=== PATIENT | male | born 1955 | race Caucasian/White ===

== ENCOUNTER 2022-09-23 05:36 | Observation (INO) ==
--- NOTE | 2022-09-01 10:48 | PAT Medication Instructions ---
Medication Instructions Date of Service September 01, 2022 Home Medications Medication Instructions Recorded Fernanda Johnson #1 ea 08/15/22 amlodipine 5 mg tablet 5 mg PO BID ibuprofen 200 mg tablet 200 mg PO Q6H PRN Pain lisinopril 40 mg tablet 40 mg PO QAM sitagliptin phosphate 50 mg tablet (Januvia) 50 mg PO QAM ASK your prescriber and surgeon ibuprofen 200 mg tablet 200 mg PO Q6H PRN Pain DO NOT take the morning of surgery lisinopril 40 mg tablet 40 mg PO QAM sitagliptin phosphate 50 mg tablet (Januvia) 50 mg PO QAM Take morning of surgery With a small sip of water, OTHERWISE NOTHING TO EAT OR DRINK AFTER MIDNIGHT: amlodipine 5 mg tablet 5 mg PO BID Take evening before surgery amlodipine 5 mg tablet 5 mg PO BID Other Notes If you have any questions please call us at [phone] or [phone] or [phone] or [phone]
--- NOTE | 2022-09-10 10:25 | Anesthesiology Consultation ---
Date of Service September 10, 2022 Assessment & Plan (1) Encounter for pre-operative examination: Chart Review Chart Review: Acceptable Risk for Surgery and Patient seen in Pre Admission Testing Pt currently scheduled as 23 hours observation. If surgeon decides to change patient to Same Day Joint, patient would be acceptable risk for TKA, pending patient is motivated, has good support and surgeon's office completes [facility] Program preop requirements. - Check BSG AM DOS Per PAT appt on 09/10/22, patient denies any recent travel or large group activities. Pt is vaccinated for Covid. Will leave to surgeon's discretion if preop Covid testing needed. Educated on importance of using Covid precautions one week prior to surgery Teaching & Discussion Pre-Anesthesia Teaching/Discussion Notes: Instructed NPO after midnight before surgery,except medications with 15 cc of water. Medication instructions provided according to the PAT guidelines. History Surgery Operation Date: 09/23/22 08:50 Proposed Procedures p Right Total Knee Arthroplasty - Ismael Augustine MD Height/Weight Height: 6 ft 2 in Weight: 143.3 kg Allergies Allergy/AdvReac Type Severity Reaction Status Date / Time codeine Allergy Intermediate Nausea Verified 08/29/22 10:49 Medications Home Medications Medication Instructions Recorded Confirmed Last Taken Wheeled Walker #1 ea 08/15/22 08/29/22 Unknown amlodipine 5 mg tablet 5 mg PO BID 08/29/22 08/29/22 Unknown ibuprofen 200 mg tablet 200 mg PO Q6H PRN Pain 08/29/22 08/29/22 Unknown lisinopril 40 mg tablet 40 mg PO QAM 08/29/22 08/29/22 Unknown sitagliptin phosphate 50 mg tablet 50 mg PO QAM 08/29/22 08/29/22 Unknown (Urvashi) Past Medical History Medical History (Updated 09/10/22 @ 15:04 by Courtney Christian PA-C) Diabetes mellitus, type 2 Hgb A1C 7.5 in 07/2022 History of throat cancer Dx'ed 2000- s/p tonsillectomy and removal of LN on right side - s/p chemo/XRT No saliva glands to right side of mouth Hypertension Osteoarthritis Post-nasal drip worse at night - chronic/stable - improved with Afrin Exercise / Class Metabolic Activity II 4-5 Yardwork/Stairs/Walk up hill (one flight of stairs - no chest pain or SOB ) Past Family History Family History Aunt Diabetes Past Surgical History Surgical History Closed left ankle fracture with surgical repair History of colonoscopy History of tooth extraction bridge lower jaw History of total knee replacement left Hx of tonsillectomy removed right one due to cancer > radiation 36 treatments > 20 yrs ago Hx of umbilical hernia repair x3 Past Anesthesia History No Hx of Anesthesia Complications and No Family Hx of Anesthesia Complications History of PONV No Hx of PONV and No Hx of Motion Sickness Social History Smoking Status: Never smoker Do You Dip or Chew Tobacco: No Hx Alcohol Use: Yes Alcohol type: beer alcohol intake frequency: a few times a week Hx Substance Use: No substance use type: does not use Review of Systems Cough (chronic)- secondary to post nasal drip- stable Pt had own blood transfusion with last knee surgery Patient denies chest pain, shortness of breath, dyspnea on exertion, reflux, wheezing, palpitations. No hx of seizures, stroke, [place]. No hx of blood clots. Physical Exam Vital Signs VITALS BP 145/86 P 68 TEMP 97.9 SP02 96% RESP 16 Constitutional no acute distress ENMT Mouth: no TMJ clicking Thyromental Distance: > or= 3.5 Finger Breadths (3.5) Mallampati Class: III Missing molars on right side Four tooth side bridge on bottom All lower teeth capped/crowned Neck neck extension not limited Respiratory normal respiratory effort; no respiratory distress Auscultation: lungs clear to auscultation bilaterally; no wheezes Cardiovascular Rate/Rhythm: regular rate and regular rhythm Heart Sounds: no murmur Vessels: no carotid bruit Musculoskeletal Spine: no pain with cervical ROM Extremities: extremities normal to inspection Psychiatric Orientation: alert Lab Results Anesthesia Preop Results Results Anesthesia Widget: WBC 9.06 K/ul (4.8-10.8) 09/10/22 Hgb 15.0 g/dl (14.0-18.0) 09/10/22 Hct 43.1 % (42.0-52.0) 09/10/22 Plt 255 K/uL (130-400) 09/10/22 Na 140 mmol/L (136-145) 09/10/22 K 4.2 mmol/L (3.5-5.1) 09/10/22 Cl 104 mmol/L (98-107) 09/10/22 CO2 29 mmol/L (21-32) 09/10/22 BUN 16 mg/dl (6-23) 09/10/22 Creat 1.03 mg/dl (0.6-1.4) 09/10/22 Glucose Level 146 mg/dl (70-99(Fasting)) H 09/10/22 PT 11.1 Seconds (9.0-12.0) 09/10/22 PTT 28.1 Seconds (21.0-31.0) 09/10/22 INR 1.0 (0.9-1.1) 09/10/22 Blood Type B Positive 09/10/22 Antibody Screen NEGATIVE 09/10/22 Testing Laboratory Results 08/14/22= HGB A1C: 7.5 Electrocardiogram Date: 09/10/22 Findings: + NSR @ (67bpm ) Left axis deviation Minimal voltage criteria for LVH, may be normal variant Nonspecific T wave abnormality Chest X-Ray Date: 09/10/22 Findings: + NAD and + cardiomegaly PA and lateral chest radiographs are obtained. No prior studies are available for comparison at the time of dictation. The heart is enlarged. The pulmonary vasculature is noncongestive. The lungs and pleural spaces are clear noting mild bibasilar atelectasis. There is no pneumothorax. There are chronic/healed left-sided rib fractures. Degenerative change is noted throughout the thoracic spine. COVID-19 Risk Screen Screening Information COVID-19 Screen Date: 09/10/22 Exposure 21 Days Family/Household +COVID Last 21 Days: No Exposure 10 Days Any COVID Exposure Last 10 Days: No Symptoms Last 10 Days Experienced COVID Sx Last 10 Days: No + COVID 0-90 Days COVID + in Last 0-90 Days: No Risk Plan COVID Risk Plan: No Risk Identified Patient Education COVID Preop Screening Education Complete: Yes
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
[2022-09-23] MEDS ORDERED: BUPIVACAINE LIPOSOME/PF 266 MG, BUPIVACAINE/EPINEPHRINE 50 ML, SODIUM CHLORIDE 0.9% PF ... INFIL SCH (06:00)
[2022-09-23] MEDS ORDERED: ACETAMINOPHEN 500 MG TAB PO SCH (06:00)
[2022-09-23] MEDS ORDERED: METOCLOPRAMIDE HCL 10 MG TABLET PO SCH (06:00)
[2022-09-23] MEDS ORDERED: LR 15ML/HR IV SCH (06:00)
[2022-09-23] MEDS ORDERED: Scopolamine 1 MG TDSY TD SCH (06:00)
[2022-09-23] MEDS ORDERED: dexAMETHasone**PF** 10 MG/ML VIAL IV SCH (06:00)
[2022-09-23] MEDS ORDERED: FAMOTIDINE 20 MG TAB PO SCH (06:00)
[2022-09-23] MEDS ORDERED: TRANEXAMIC ACID 1,000 MG **IV Intra-op IV SCH (06:00)
[2022-09-23] MEDS ORDERED: LR 60ML/HR IV SCH (06:00)
[2022-09-23] MEDS: CeleBREX 200 MG CAP PO SCH (06:17)
[2022-09-23] MEDS ORDERED: ROPIVACAINE 0.5% 5 MG/ML 30 ML VIAL ONE (06:33)
[2022-09-23] MEDS ORDERED: BUPIVACAINE 0.5 % 5 MG/1 ML PF 10ML VIAL ONE (06:33)
--- NOTE | 2022-09-23 07:00 | History & Physical Bridge Note ---
Date of Service September 23, 2022 History & Physical Bridge Note I have examined the patient, reviewed the History & Physical and in the interval since the performance of the History & Physical I have noted the following changes of clinical significance: no changes noted
[2022-09-23] MEDS ORDERED: fentaNYL citrate PF 100 MCG/2 ML VIAL IV PRN (07:37)
[2022-09-23] MEDS ORDERED: ePHEDrine sulfate 50 MG/ML AMP IV PRN (07:37)
[2022-09-23] MEDS ORDERED: ATROPINE SULFATE 0.1 MG/ML 10ML SYR IV PRN (07:37)
[2022-09-23] MEDS ORDERED: ONDANSETRON INJ 2 MG/ML 2 ML VIAL IV PRN ×2 (07:37→11:53)
[2022-09-23] MEDS ORDERED: DEXAMETHASONE SOD INJ 4 MG/ML VIAL ONE (08:07)
[2022-09-23] MEDS ORDERED: LIDOCAINE 2% MPF LOCAL 5 ML VIAL ONE (08:07)
[2022-09-23] MEDS ORDERED: PROPOFOL IV EMULSION 10 MG/ML 20 ML VIAL IV ONE (08:07)
[2022-09-23] MEDS ORDERED: ONDANSETRON INJ 2 MG/ML 2 ML VIAL ONE (08:07)
[2022-09-23] MEDS ORDERED: MIDAZOLAM HCL 1 MG/ML 2ML VIAL ONE ×2 (08:08→10:04)
[2022-09-23] MEDS ORDERED: SODIUM CHLORIDE 0.9% PF 50 ML VIAL ONE (08:38)
[2022-09-23] MEDS ORDERED: BUPIVACAINE LIPOSOME 1.3% 266 MG/20 ML VIAL ONE (08:38)
[2022-09-23] MEDS ORDERED: BUPIVACAINE/EPINEPHRINE 0.25% 1:200,000 30 ML VIAL ONE (08:38)
[2022-09-23] MEDS: ceFAZolin 2000MG 2,000 MG/15 ML SYR IV SCH ×3 (08:50→17:06)
[2022-09-23] MEDS ORDERED: ceFAZolin 330 MG/ML 1 GM VIAL ONE (09:02)
[2022-09-23] MEDS ORDERED: ceFAZolin 1000MG 1,000 MG/7.5 ML SYR IV ONE (09:52)
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
--- NOTE | 2022-09-23 10:56 | XRay Report ---
TWO VIEWS RIGHT KNEE CLINICAL HISTORY: Postoperative examination. FINDINGS: AP and crosstable lateral portable views of the right knee are obtained. A right knee arthr oplasty is in near anatomic alignment. There has been undersurface remodeling of the patella. No acut e fracture is seen. There are expected postoperative changes around the knee including skin clips, so ft tissue edema, and subcutaneous gas. IMPRESSION: Expected postoperative changes status post right knee arthroplasty. No acute fracture is seen. ACT 112: Negative or not required by law. Electronically signed by: Dewey Vidal M.D. 09/23/2022 10:55 AM
[2022-09-23] MEDS ORDERED: MAGNESIUM HYDROXIDE SUSP 30 ML UDC PO PRN (11:53)
[2022-09-23] MEDS ORDERED: bisacodyL 10 MG SUPP PR PRN (11:53)
[2022-09-23] MEDS ORDERED: GLUCOSE 10 TAB/TUBE PO PRN (11:53)
[2022-09-23] MEDS ORDERED: ALUMINUM/MAGNESIUM SUSP 30 ML UDC PO PRN (11:53)
[2022-09-23] MEDS ORDERED: NALOXONE HCL 0.4 MG/1 ML VIAL/CARP IV PRN (11:53)
[2022-09-23] MEDS ORDERED: METOCLOPRAMIDE HCL INJ 5 MG/ML 2 ML VIAL IV PRN (11:53)
[2022-09-23] MEDS ORDERED: PHARMACY GLYCEMIC MGMT CONSULT PRN (11:53)
[2022-09-23] MEDS ORDERED: GLUCAGON FOR INJ 1 MG VIAL SQ PRN (11:53)
[2022-09-23] MEDS ORDERED: CARBOHYDRATES FOR HYPOGLYCEMIA PO PRN (11:53)
[2022-09-23] MEDS ORDERED: GLUCOSE 40% GEL 15 GM TUBE PO PRN (11:53)
[2022-09-23] MEDS ORDERED: DEXTROSE 50% 50 ML SYRINGE IV PRN (11:53)
[2022-09-23] MEDS ORDERED: HYDROmorphone INJ 0.5 MG/0.5 ML SYR IV PRN (11:53)
[2022-09-23] MEDS: SODIUM CHLORIDE 0.9% 1000ML 1,000 ML IV SCH ×2 (12:15→18:05)
[2022-09-23] MEDS: KETOROLAC TROMETHAMINE 15 MG/ML VIAL IV SCH ×2 (12:19→17:41)
[2022-09-23] MEDS ORDERED: LANTUS PER UNIT CHARGE SQ ONE (12:30)
[2022-09-23] MEDS: INSULIN ASPART PER UNIT CHARGE SC SCH ×3 (12:43→20:45)
--- NOTE | 2022-09-23 12:52 | Pharmacy Report ---
Pharmacy Glycemic Short Note 2 - Date of Service September 23, 2022 - Glycemic Short BSG Results (Last 24 hours): 09/23/22 09/23/22 09/23/22 06:20 10:40 12:06 POC Glucose 181 H 187 H 271 H OUTPATIENT ANTIDIABETIC REGIMEN: * Januvia 50 mg PO daily HbA1c ordered for tomorrow AM ASSESSMENT: * ASHU is a 66 year old male POD #0 s/p right total knee arthroplasty * Received 10 mg IV dexamethasone in OR * Preop BSG of 181 mg/dL, postop BSG of 271 mg/dL * Will be aggressive with initial insulin dosing (weight-based stress of 3 based on adjusted body weight) PLAN FOR INPATIENT GLYCEMIC CONTROL: * Hold outpatient oral diabetes medications * Basal insulin * Lantus 40 units SQ x 1 (~0.4 unit/kg of adjusted body weight) * Bolus insulin * NovoLog per scale ACHS or Q6hrs while NPO * Goal Range: Low 110 mg/dL - High 140 mg/dL * Correction Factor: 15 mg/dL/unit * Nutritional / Prandial insulin per carb ratio of 1 unit per 5 grams CHO consumed
--- NOTE | 2022-09-23 13:11 | Anesthesiology Progress Note ---
Date of Service September 23, 2022 Anesthesia Post Procedure Vital Signs Vital Signs: Temp Pulse Pulse Resp BP Pulse Ox O2 Del Method 09/23/22 12:49 70 16 153/91 H 96 Nasal Cannula 09/23/22 12:16 62 16 146/81 H 95 Room Air 09/23/22 11:56 Nasal Cannula 09/23/22 11:50 98.4 F 64 18 153/89 H 94 Nasal Cannula 09/23/22 11:35 63 22 159/97 H 95 Nasal Cannula 09/23/22 11:25 62 21 161/97 H 95 Nasal Cannula 09/23/22 11:15 97.9 F 64 20 154/95 H 94 Nasal Cannula 09/23/22 11:05 60 19 137/84 95 Nasal Cannula 09/23/22 10:55 63 16 128/79 94 Nasal Cannula 09/23/22 10:45 61 20 119/69 95 Oxymask 09/23/22 10:38 97.7 F 61 18 109/68 94 Oxymask 09/23/22 06:13 98.4 F 65 20 176/95 H 95 Room Air O2 Flow Rate 09/23/22 12:49 2 09/23/22 12:16 2 09/23/22 11:56 2 09/23/22 11:50 2 09/23/22 11:35 2 09/23/22 11:25 2 09/23/22 11:15 2 09/23/22 11:05 2 09/23/22 10:55 2 09/23/22 10:45 12 09/23/22 10:38 12 09/23/22 06:13 Pain Intensity Right Knee: Pain Intensity: 4 Transfer of Care Handoff Completed per policy Notes Mental Status: alert / awake / arousable and participated in evaluation Patient Amnestic to Procedure: Yes Nausea / Vomiting: adequately controlled Pain: adequately controlled Airway Patency, RR, SpO2: stable & adequate BP & HR: stable & adequate Hydration State: stable & adequate Neuraxial Anesthesia: was administered and sensory block is resolving Anesthetic Complications: no major complications apparent and Pt Satisfied with anesthetic care
[2022-09-23] MEDS: oxyCODONE HCL IR 5 MG TAB (IMMEDIATE RELEASE) PO PRN ×2 (13:31→20:25)
[2022-09-23] MEDS: ACETAMINOPHEN 500 MG TAB PO SCH ×2 (13:31→20:25)
[2022-09-23] MEDS ORDERED: TRANEXAMIC ACID / 0.7% NACL 1,000 MG/100 ML BAG IV SCH (16:45)
[2022-09-23] MEDS: ASCORBIC ACID 500 MG TAB PO SCH (17:00)
[2022-09-23] MEDS: Scopolamine CHECK PATCH PLACEMENT SCH (17:01)
[2022-09-23] MEDS: DOCUSATE SODIUM 100 MG CAP PO SCH (20:26)
[2022-09-23] MEDS: ASPIRIN 81 MG ECTAB PO SCH (20:27)
[2022-09-23] MEDS: amLODIPine BESYLATE 5 MG TAB PO SCH (20:27)
[2022-09-23] MEDS ORDERED: SENNA 8.6 MG TAB PO SCH ×2 (21:00)
[2022-09-24] MEDS: Scopolamine CHECK PATCH PLACEMENT SCH ×2 (00:36→08:32)
[2022-09-24] MEDS: ceFAZolin 2000MG 2,000 MG/15 ML SYR IV SCH (00:38)
[2022-09-24] MEDS: KETOROLAC TROMETHAMINE 15 MG/ML VIAL IV SCH ×3 (00:38→12:38)
[2022-09-24 07:55] LABS: Hematocrit (blood only) 34.7 % (42.0-52.0); Hemoglobin 12.2 g/dl (14.0-18.0); Mean Corpuscular Hemoglobin 29.8 pg (25.0-34.0); Mean Corpuscular Hgb Conc 35.2 g/dL (32.0-36.0); Mean Corpuscular Volume 84.8 fL (80.0-100.0); Mean Platelet Volume 9.7 fL (9.4-12.4); Platelet Count 266 K/uL (130-400); RDW Coefficient of Variation 12.9 % (11.5-14.5); RDW Standard Deviation 39.1 fL (36.4-46.3); Red Blood Count 4.09 M/uL (4.70-6.10); White Blood Count 14.23 K/ul (4.8-10.8)
[2022-09-24 08:26] LABS: Calcium 8.3 mg/dl (8.6-10.3); Creatinine Clr Calc Pharmacy 115.9 ml/min; Est GFR (African American) 98.1 ml/min; Est GFR (Non-African American) 84.6 ml/min
[2022-09-24] MEDS: amLODIPine BESYLATE 5 MG TAB PO SCH (08:31)
[2022-09-24] MEDS: ASPIRIN 81 MG ECTAB PO SCH (08:31)
[2022-09-24] MEDS: DOCUSATE SODIUM 100 MG CAP PO SCH (08:31)
[2022-09-24] MEDS: ASCORBIC ACID 500 MG TAB PO SCH (08:31)
[2022-09-24] MEDS: ACETAMINOPHEN 500 MG TAB PO SCH ×2 (08:31→15:20)
[2022-09-24] MEDS: INSULIN ASPART PER UNIT CHARGE SC SCH ×2 (08:44→12:38)
[2022-09-24 08:47] LABS: Estimated Average Glucose 166 mg/dl; Hemoglobin A1C 7.4 % (4.5-5.6)
[2022-09-24] MEDS ORDERED: TAMSULOSIN HCL 0.4 MG CAP PO SCH (09:00)
[2022-09-24] MEDS ORDERED: lisinopril 40 MG TAB PO SCH (09:00)
[2022-09-24] MEDS ORDERED: LANTUS PER UNIT CHARGE SQ SCH (09:00)
[2022-09-24] MEDS ORDERED: MULTIVITAMIN TAB PO SCH (09:00)
[2022-09-24] MEDS ORDERED: SITagliptin PHOSPHATE 25 MG TAB PO SCH (09:00)
--- NOTE | 2022-09-24 14:18 | Progress Notes ---
SUBJECTIVE: A 66-year-old gentleman, postoperative day 1 from a right knee replacement. He is doing pretty well. Pain is controlled. Mostly, just having quad discomfort. No chest pain or shortness of breath. Not feeling dizzy or lightheaded. Hoping to go home. OBJECTIVE: VITAL SIGNS: Temperature is 36.6. Vital signs are stable. GENERAL: Shows a pleasant middle-aged male. He is sitting up in bed, talking to his son. Looks com fortable. LUNGS: Clear to auscultation. HEART: Regular rate and rhythm. ABDOMEN: Soft, nontender, nondistended. EXTREMITIES: Grossly neurovascularly intact except as follows. Examination of the right leg reveals the leg to be well aligned. Dressing is clean, dry and intact. He can dorsiflex and plantarflex his foot appropriately. He is neurologically intact. LABORATORY DATA: Hemoglobin 12.2. Hematocrit 34.7. Electrolytes are stable. ASSESSMENT: A 66-year-old gentleman postoperative day 1 from right knee replacement, doing pretty we ll. Pain is controlled. He is neurologically intact. PLAN: 1. DVT prophylaxis includes thigh-high TEDs, SCDs, and aspirin twice a day. 2. PT/OT. Weight bear as tolerated. Right total knee protocol. 3. Pain control, doing okay with current pain regimen. 4. Disposition: Plan to discharge to home with some home health today. Job ID: [id number]
--- NOTE | 2022-09-26 13:26 | Discharge Summary ---
Date of Service September 26, 2022 Discharge Data Procedures Performed Operation Date: 09/23/22 08:50 Actual Procedures p Right Total Knee Arthroplasty(Right) - Ismael Augustine MD Hospital Course (1) Status post total right knee replacement: This is a 66 year old patient admitted on 09/23/22 and underwent total knee arthroplasty. He tolerated the procedure well and there were no complications. Transferred to the PACU post op and later to the orthopedic floor for further care. He was given ancef for antibiotic prophylaxis. He was also given XIMENA stockings, SCDs, and aspirin for DVT prophylaxis. Hemoglobin, hematocrit, and vital signs were monitored during his hospital stay and remained stable. Did not require any blood transfusions. There were no complications during his hospital stay. By post op day #1 the patient was tolerating a diabetic diet, pain was reasonably controlled with oral pain medicine, and he was participating in physical therapy. On post op day #1 the patient was discharged home and set up with home health care. He was given printed discharge instructions including prescriptions for extra strength tylenol, aspirin, ketorolac, cefadroxil, senokot, zofran, oxycodone, and flomax. Continue physical therapy, weight bearing as tolerated. Continue XIMENA stockings. Follow up approximately 2 weeks post op or sooner if there are problems or concerns. Coding Level of Care Code None Diagnoses Status post total right knee replacement Z96.651
== END 2022-09-24 15:29 | disposition home health service (06) ==
LOC: 3E 05:36 → ASU 05:36